=== PATIENT | male | born 1985 | race Caucasian/White ===

== ENCOUNTER 2016-09-08 09:03 | Emergency (ER) | payer MEDICAID, OTHER ==
[2016-09-08 09:09] VITALS: RESP 16; TEMP 97.8; O2SAT 100
[2016-09-08] MEDS ORDERED: Sodium Chloride 0.9% 1,000 ML IV STA (09:44)
--- NOTE | 2016-09-08 09:49 | ED PDOC ---
Arrival/HPI - General Chief Complaint: Dental Pain Time Seen by Provider: 09/08/16 09:43 Historian: Patient - History of Present Illness Narrative History of Present Illness (Text): 09/08/16 09:46 31-year-old male presents today with left-sided throat pain left-sided dental pain difficulty swallowing. Patient also complaining of feeling like he's having difficulty breathing. Complaining of subjective fevers and chills at home. Patient states he started 2 days ago with left lower dental pain and woke up today with left-sided throat pain and swelling of the throat and having trouble swallowing. Patient did not take any medications at home. Patient states he has had a left lower dental fracture for a long time but it has been over the past 2 days that the pain has worsened. Patient is now complaining of pain into the left side of the throat. Past Medical History - Provider Review Nursing Documentation Reviewed: Yes - Travel History Have you recently traveled outside [place] w/in the past 3 mons?: No - Infectious Disease Hx of Infectious Diseases: None - Tetanus Immunization Tetanus Immunization: Unknown - Psychiatric Hx Substance Use: No Family/Social History - Physician Review Nursing Documentation Reviewed: Yes Family/Social History: Unknown Family HX Smoking Status: Never Smoked Hx Alcohol Use: Yes Frequency of alcohol use: Socially Hx Substance Use: No Allergies/Home Meds Allergies/Adverse Reactions: Allergies No Known Allergies Allergy (Verified 09/08/16 09:09) Review of Systems - Review of Systems Constitutional: Fevers. absent: Fatigue ENT: Sore Throat, Other (left sided dental pain). absent: Sinus Congestion Respiratory: absent: SOB, Cough Cardiovascular: absent: Chest Pain, Palpitations Gastrointestinal: absent: Abdominal Pain, Nausea, Vomiting Genitourinary Male: absent: Dysuria Musculoskeletal: absent: Arthralgias Skin: absent: Rash, Pruritis Neurological: absent: Headache, Dizziness Psychiatric: absent: Anxiety, Depression Physical Exam Vital Signs Reviewed: Yes Vital Signs Temp Pulse Resp BP Pulse Ox 09/08/16 11:20 66 16 114/80 100 09/08/16 09:04 97.8 F 81 16 113/75 100 Temperature: Afebrile Blood Pressure: Normal Pulse: Regular Respiratory Rate: Normal Appearance: Positive for: Well-Appearing, Non-Toxic, Uncomfortable Pain Distress: Mild Mental Status: Positive for: Alert and Oriented X 3 - Systems Exam Head: Present: Atraumatic Extroacular Muscles: Present: EOMI Conjunctiva: Present: Normal Ears: Present: Normal, NORMAL TM Mouth: Present: Moist Mucous Membranes. No: Normal Teeth (+ left lower molar dental fracture) Pharnyx: Present: TONSILS ENLARGED, Other (tolerating secretions). No: ERYTHEMA , EXUDATE, Peritonsilar Swelling, Uvular Deviation, Muffled/Hoarse Voice, Strider, Soft Palate/Uvular Edema Nose (External): Present: Atraumatic Nose (Internal): Present: Normal Inspection Neck: Present: Normal Range of Motion, Lymphadenopathy (+ left sided tender lymphadenopathy.), Trachea Midline Respiratory/Chest: Present: Clear to Auscultation, Good Air Exchange. No: Respiratory Distress, Accessory Muscle Use Cardiovascular: Present: Regular Rate and Rhythm, Normal S1, S2. No: Murmurs Neurological: Present: GCS=15, Speech Normal Skin: Present: Warm, Dry, Normal Color. No: Rashes Psychiatric: Present: Alert, Oriented x 3 Medical Decision Making ED Course and Treatment: 09/08/16 09:50 31-year-old male complaining of 2 day history of left-sided dental and throat pain with difficulty breathing and swallowing appears uncomfortable although throat appears unremarkable will do a CAT scan to rule out retropharyngeal abscess. cbc: wnl cmp; wnl toradol decadron NS iv bolus pt reassessment; pt feeling much better after medications, states he feels like he can breath and swallow better. Ct soft tissue neck; FINDINGS: NASOPHARYNX: There is mild adenoid hypertrophy. SUPRAHYOID NECK: There is enlargement of the palatine and lingual tonsils, left larger than right. There is no evidence of peritonsillar abscess. There is no evidence of airway narrowing. The Unremarkable oropharynx, oral cavity, parapharyngeal space and retropharyngeal space are normal in appearance. INFRAHYOID NECK: The Unremarkable larynx, hypopharynx, and supraglottic space are normal. Vocal cords intact. MASS: None. GLANDS: Parotid and submandibular glands unremarkable. Normal size thyroid gland, without nodule. LYMPH NODES: There are enlarged left upper jugular chain lymph nodes. CERVICAL SPINE: No fracture or focal lesion. Within normal limits. VASCULAR STRUCTURES: There is normal intravascular enhancement. OTHER FINDINGS: None. IMPRESSION: Enlarged lingual and bilateral palatine tonsils, larger on the left. No evidence of peritonsillar abscess. Reactive left upper jugular chain lymphadenopathy. Mild adenoidal hypertrophy. I discussed all results in depth with patient. advised f/u with ENT and dentist. advised taking abx as prescribed. advised motrin for pain every 6 hours as need. advised return if symptoms worsen,persist or if new symptoms develop. Patient verbalizes understanding of discharge instructions and need for immediate followup. case was discussed with Dr. patel impression; pharyngitis, toothache Motrin every 6 hours as needed for pain/fever reduction Increase fluids Amoxicillin; 3 times daily x10 days Follow up primary care physician within the next 2 days Follow up with the Dentist within the next 2 days. Warm saltwater gargles, throat lozenges Return if symptoms worsen persist or if the symptoms develop - Lab Interpretations Lab Results: 09/08/16 10:00 09/08/16 10:00 Lab Results 09/08/16 10:00: WBC 8.8, RBC 5.01, Hgb 14.9, Hct 42.7, MCV 85.2, MCH 29.7, MCHC 34.9, RDW 12.8, Plt Count 271, MPV 9.3, Gran % 53.9, Lymph % (Auto) 36.2 H, [place] % (Auto) 5.2, Eos % (Auto) 4.4, Baso % (Auto) 0.3, Gran # 4.75, Lymph # 3.2 , [place] # 0.5, Eos # 0.4, Baso # 0.03, Sodium 139, Potassium 3.9, Chloride 103, Carbon Dioxide 27, Anion Gap 13, BUN 12, Creatinine 0.8, Est GFR ( Amer) > 60, Est GFR (Non-Af Amer) > 60, Random Glucose 93, Calcium 9.1, Total Bilirubin 0.8, AST 27, ALT 30, Alkaline Phosphatase 72, Total Protein 8.3, Albumin 4.2, Globulin 4.1, Albumin/Globulin Ratio 1.0 L - RAD Interpretation Radiology Orders: 09/08/16 09:43 NECK SOFT TISSUE W/CONTRAST [CT] Stat - Medication Orders Current Medication Orders: Discontinued Medications Dexamethasone (Decadron Inj) 10 mg IVP STAT STA Stop: 09/08/16 09:45 Last Admin: 09/08/16 10:01 Dose: 10 MG IVP Administration Document 09/08/16 10:01 SE (Rec: 09/08/16 10:01 [id number]) Charges for Administration # of IVP Administrations 1 Sodium Chloride (Sodium Chloride 0.9%) 1,000 mls @ 999 mls/hr IV .Q1H1M STA Stop: 09/08/16 10:44 Last Admin: 09/08/16 09:57 Dose: 999 MLS/HR eMAR Start Stop Document 09/08/16 09:57 SE (Rec: 09/08/16 09:57 SE [id number]) Intravenous Solution Start Date 09/08/16 Start Time 09:57 Iohexol (Omnipaque 350 100 Ml) Confirm Administered Dose 350 mg .ROUTE .STK-MED ONE Stop: 09/08/16 10:56 Ketorolac Tromethamine (Toradol) 15 mg IVP STAT STA Stop: 09/08/16 09:45 Last Admin: 09/08/16 10:01 Dose: 15 MG IVP Administration Document 09/08/16 10:01 SE (Rec: 09/08/16 10:01 [id number]) Charges for Administration # of IVP Administrations 1 Disposition/Present on Arrival - Present on Arrival Any Indicators Present on Arrival: No History of DVT/PE: No History of Uncontrolled Diabetes: No Urinary Catheter: No History of Decub. Ulcer: No History Surgical Site Infection Following: None - Disposition Have Diagnosis and Disposition been Completed?: Yes Diagnosis: Pharyngitis, Toothache Disposition: HOME/ ROUTINE Disposition Time: 11:59 Patient Plan: Discharge Condition: GOOD Discharge Instructions (ExitCare): Pharyngitis (ED), Toothache (ED) Additional Instructions: Motrin every 6 hours as needed for pain/fever reduction Increase fluids Amoxicillin; 3 times daily x10 days Follow up primary care physician within the next 2 days Follow up with the Dentist within the next 2 days. Warm saltwater gargles, throat lozenges Return if symptoms worsen persist or if the symptoms develop Prescriptions: Amoxicillin 500 mg PO TID #30 tab Ibuprofen [Motrin] 600 mg PO Q6H PRN #20 tab PRN Reason: pain/fever reduction Referrals: Jarrell Chan DO [Staff Provider] - Follow up with primary Kiko Harris DMD [Staff Provider] - Follow up with primary Forms: WORK NOTE
[2016-09-08 10:02] LABS: ADD MANUAL DIFF? NO
[2016-09-08 10:07] LABS: BASO # 0.03 K/mm3 (0.0-2.0); BASO % 0.3 % (0.0-3.0); EOS # 0.4 (0.0-0.7); EOS % 4.4 % (1.5-5.0); GRAN # 4.75 (1.4-6.5); GRAN % 53.9 % (50.0-68.0); HEMATOCRIT 42.7 % (42.0-52.0); LYMPH # 3.2 (1.2-3.4); LYMPH % 36.2 % (22.0-35.0); MEAN CELL VOLUME 85.2 fL (80.0-105.0); MEAN CORPUSCULAR HEMOGLOBIN 29.7 pg (25.0-35.0); MEAN CORPUSCULAR HGB CONC 34.9 g/dl (31.0-37.0); MEAN PLATELET VOLUME 9.3 fl (7.0-11.0); MONO # 0.5 (0.1-0.6); MONO % 5.2 % (1.0-6.0); PLATELET COUNT 271 10^3/uL (120.0-450.0); RED CELL DISTRIBUTION WIDTH 12.8 % (11.5-14.5); WHITE BLOOD COUNT 8.8 10^3/ul (4.5-11.0)
[2016-09-08 10:16] LABS: ALKALINE PHOSPHATASE 72 U/L (38-133); ALT/SGPT 30 U/L (7-56); AST/SGOT 27 U/L (15-59); BILIRUBIN,TOTAL 0.8 mg/dL (0.2-1.3); BLOOD UREA NITROGEN 12 mg/dL (7-21); CALCIUM 9.1 mg/dL (8.4-10.5); CARBON DIOXIDE 27 mmol/L (21-33); CHLORIDE 103 mmol/L (98-107); GFR AFRICAN-AMERICAN > 60; GLUCOSE,RANDOM 93 mg/dL (70-110); POTASSIUM 3.9 mmol/L (3.6-5.0); SODIUM 139 mmol/L (132-148); TOTAL PROTEIN 8.3 g/dL (5.8-8.3)
[2016-09-08] MEDS ORDERED: Iohexol 350 MG/100 ML VIAL ONE (10:55)
[2016-09-08 11:21] VITALS: BP 114/80; PULSE 66
--- NOTE | 2016-09-08 11:23 | CT ---
PROCEDURE: CT NECK WITH CONTRAST HISTORY: left sided neck/throat pain/difficulty swallowing COMPARISON: None TECHNIQUE: CT of the neck with intravenous contrast. Coronal and sagittal reformats generated. Intravenous contrast dose: 100 mL Omnipaque 350. Radiation dose: DLP 398.97 mGy-cm FINDINGS: NASOPHARYNX: There is mild adenoid hypertrophy. SUPRAHYOID NECK: There is enlargement of the palatine and lingual tonsils, left larger than right. There is no evidence of peritonsillar abscess. There is no evidence of airway narrowing. The Unremarkable oropharynx, oral cavity, parapharyngeal space and retropharyngeal space are normal in appearance. INFRAHYOID NECK: The Unremarkable larynx, hypopharynx, and supraglottic space are normal. Vocal cords intact. MASS: None. GLANDS: Parotid and submandibular glands unremarkable. Normal size thyroid gland, without nodule. LYMPH NODES: There are enlarged left upper jugular chain lymph nodes. CERVICAL SPINE: No fracture or focal lesion. Within normal limits. VASCULAR STRUCTURES: There is normal intravascular enhancement. OTHER FINDINGS: None. IMPRESSION: Enlarged lingual and bilateral palatine tonsils, larger on the left. No evidence of peritonsillar abscess. Reactive left upper jugular chain lymphadenopathy. Mild adenoidal hypertrophy.
== END 2016-09-08 12:22 | disposition home or self-care (01) ==
LOC: ED 09:03
DX: J02.9 Acute pharyngitis, unspecified (principal); K08.89 Other specified disorders of teeth and supporting structures
CPT/HCPCS: 70491; 80053; 85025; 96374; 96375; 99284; J1100; J1885; J7040; Q9967

== ENCOUNTER 2017-03-28 12:41 | Emergency (ER) | payer MEDICAID, OTHER ==
[2017-03-28 12:48] VITALS: BMI 27.8
[2017-03-28 12:51] VITALS: TEMP 98.6; O2SAT 99
[2017-03-28] MEDS ORDERED: Sodium Chloride 0.9% 1,000 ML IV STA (13:15)
--- NOTE | 2017-03-28 13:22 | ED PDOC ---
Arrival/HPI - General Chief Complaint: Abdominal Pain Time Seen by Provider: 03/28/17 12:55 Historian: Patient - History of Present Illness Narrative History of Present Illness (Text): 03/28/17 Demarcus Robert is a 31 year old male, who presents to the emergency department complaining of back pain. He reports that he had his boss who is a chiropractor work on his back and when she evaluated him patient began to complain of right flank pain and right lower quadrant pain so she suggested he go to ED. Patient reports having some frequency yesterday but denies any fever , nausea, chest pain, vomiting, constipation, diarrhea, shortness of breath, or other complaints. Time/Duration: < week (2 days) Symptom Onset: Sudden Symptom Course: Unchanged Associated Symptoms (Text): frequency, flank pain, and RLQ pain Past Medical History - Provider Review Nursing Documentation Reviewed: Yes - Infectious Disease Hx of Infectious Diseases: None - Tetanus Immunization Tetanus Immunization: Unknown - Reproductive Currently : No - Psychiatric Hx Substance Use: No - Anesthesia Hx Anesthesia: No Family/Social History - Physician Review Nursing Documentation Reviewed: Yes Family/Social History: Unknown Family HX Smoking Status: Never Smoked Hx Alcohol Use: Yes Hx Substance Use: No Allergies/Home Meds Allergies/Adverse Reactions: Allergies No Known Allergies Allergy (Verified 09/08/16 09:09) Home Medications: Home Meds Medication Instructions Recorded Confirmed No Known Home Med 03/28/17 03/28/17 Review of Systems - Review of Systems Constitutional: absent: Fatigue, Fevers Respiratory: absent: SOB, Cough Cardiovascular: absent: Chest Pain, Palpitations Gastrointestinal: Abdominal Pain (right lower quadrant ). absent: Constipation , Diarrhea, Nausea, Vomiting Genitourinary Male: Frequency (now resolved). absent: Dysuria, Hematuria Musculoskeletal: Back Pain, Other (right flank pain) Neurological: absent: Headache, Dizziness Endocrine: absent: Diaphoresis Physical Exam Vital Signs Reviewed: Yes Vital Signs Temp Pulse Resp BP Pulse Ox 03/28/17 16:12 65 18 118/75 99 03/28/17 14:55 62 17 120/78 99 03/28/17 12:50 98.6 F 64 18 117/76 99 Temperature: Afebrile Blood Pressure: Normal Pulse: Regular Respiratory Rate: Normal Appearance: Positive for: Well-Appearing, Non-Toxic, Comfortable Pain Distress: None Mental Status: Positive for: Alert and Oriented X 3 - Systems Exam Head: Present: Atraumatic, Normocephalic Pupils: Present: PERRL Extroacular Muscles: Present: EOMI Neck: Present: Normal Range of Motion Respiratory/Chest: Present: Clear to Auscultation, Good Air Exchange. No: Respiratory Distress, Accessory Muscle Use Cardiovascular: Present: Regular Rate and Rhythm, Normal S1, S2. No: Murmurs Abdomen: Present: Tenderness (scant right lower quadrant ), Normal Bowel Sounds , Other (no flank tenderness). No: Distention, Peritoneal Signs Back: No: CVA Tenderness, Midline Tenderness, Paraspinal Tenderness Upper Extremity: Present: Normal Inspection, Normal ROM, NORMAL PULSES. No: Cyanosis, Edema Lower Extremity: Present: Normal Inspection, NORMAL PULSES, Normal ROM. No: Edema Neurological: Present: GCS=15, CN II-XII Intact, Speech Normal Skin: Present: Warm, Dry, Normal Color. No: Rashes Psychiatric: Present: Alert, Oriented x 3, Normal Insight, Normal Concentration Medical Decision Making ED Course and Treatment: 03/28/17 Impression: 31 year old male with complaint of back pain. Differential Diagnosis included but are not limited to: appendicitis vs. renal colitis vs. musculoskeletal strain Plan: -- Labs -- Urinalysis -- Toradol and Sodium Chloride -- Reassess and disposition Progress Notes: 03/28/17 16:19 Labs grossly normal. UA negative for blood. Abdomen soft NT/ND. CT negative for acute pathology. Tolerating po. He is neurologically intact, ambulating around the ED. he was instructed to follow-up with PMD 03/28/17 16:33 - Lab Interpretations Lab Results: 03/28/17 13:58 03/28/17 13:58 Lab Results 03/28/17 14:50: Urine Color Yellow, Urine Appearance Clear, Urine pH 7.0, Ur Specific [place] 1.020, Urine Protein Negative, Urine Glucose (UA) Negative, Urine Ketones Trace H, Urine Blood Negative, Urine Nitrate Negative, Urine Bilirubin Negative, Urine Urobilinogen 0.2, Ur Leukocyte Esterase Negative 03/28/17 13:58: Sodium 142, Potassium 4.0, Chloride 103, Carbon Dioxide 31, Anion Gap 12, BUN 10, Creatinine 0.8, Est GFR ( Amer) > 60, Est GFR (Non- Af Amer) > 60, Random Glucose 100, Calcium 9.4, Total Bilirubin 0.4, AST 38, ALT 38, Alkaline Phosphatase 71, Total Protein 7.9, Albumin 4.4, Globulin 3.6, Albumin/Globulin Ratio 1.2, Lipase 93 03/28/17 13:58: WBC 9.3, RBC 5.10, Hgb 14.9, Hct 43.6, MCV 85.5, MCH 29.2, MCHC 34.2, RDW 12.4, Plt Count 281, MPV 9.7, Gran % 45.9 L, Lymph % (Auto) 45.8 H, [place] % (Auto) 5.4, Eos % (Auto) 2.5, Baso % (Auto) 0.4, Gran # 4.29, Lymph # 4.3 H, [place] # 0.5, Eos # 0.2, Baso # 0.04 I have reviewed the lab results: Yes - RAD Interpretation Radiology Orders: 03/28/17 15:19 ABD & PELVIS IV CONTRAST ONLY [CT] Stat - Medication Orders Current Medication Orders: Discontinued Medications Sodium Chloride (Sodium Chloride 0.9%) 1,000 mls @ 999 mls/hr IV .Q1H1M STA Stop: 03/28/17 14:15 Last Admin: 03/28/17 14:05 Dose: 999 mls/hr eMAR Start Stop Document 03/28/17 14:05 EQ (Rec: 03/28/17 14:05 EQ [id number]) Intravenous Solution Start Date 03/28/17 Start Time 14:05 Ketorolac Tromethamine (Toradol) 30 mg IVP STAT STA Stop: 03/28/17 13:16 Last Admin: 03/28/17 14:05 Dose: 30 mg MAR Pain Assessment Document 03/28/17 14:05 EQ (Rec: 03/28/17 14:06 EQ [id number]) Pain Reassessment Is this a pain reassessment? Yes IVP Administration Document 03/28/17 14:05 EQ (Rec: 03/28/17 14:06 EQ [id number]) Charges for Administration # of IVP Administrations 1 Morphine Sulfate (Morphine) 4 mg IVP STAT STA Stop: 03/28/17 14:22 Last Admin: 03/28/17 14:58 Dose: 4 mg MAR Pain Assessment Document 03/28/17 14:58 SF (Rec: 03/28/17 14:59 SF [id number]) Pain Reassessment Is this a pain reassessment? Yes Sleep Is patient sleeping during reassessment? No Presence of Pain Presence of Pain Yes IVP Administration Document 03/28/17 14:58 SF (Rec: 03/28/17 14:59 SF [id number]) Charges for Administration # of IVP Administrations 1 - Scribe Statement The provider has reviewed the documentation as recorded by the Abdiibe Kira Washington Provider Scribe Attestation: All medical record entries made by the Scribe were at my direction and personally dictated by me. I have reviewed the chart and agree that the record accurately reflects my personal performance of the history, physical exam, medical decision making, and the department course for this patient. I have also personally directed, reviewed, and agree with the discharge instructions and disposition. Disposition/Present on Arrival - Present on Arrival Any Indicators Present on Arrival: No History of DVT/PE: No History of Uncontrolled Diabetes: No Urinary Catheter: No History of Decub. Ulcer: No History Surgical Site Infection Following: None - Disposition Have Diagnosis and Disposition been Completed?: Yes Diagnosis: Back pain Disposition: HOME/ ROUTINE Disposition Time: 16:19 Patient Plan: Discharge Condition: GOOD Additional Instructions: Follow-up with PMD within 2 days. Return to ED if condition worsens. Referrals: PCP,NO [Primary Care Provider] - Follow up with primary Forms: [employer] (Maltese), WORK NOTE
[2017-03-28 14:07] LABS: BASO # 0.04 K/mm3 (0.0-2.0); BASO % 0.4 % (0.0-3.0); EOS # 0.2 (0.0-0.7); EOS % 2.5 % (1.5-5.0); GRAN # 4.29 (1.4-6.5); GRAN % 45.9 % (50.0-68.0); HEMATOCRIT 43.6 % (42.0-52.0); LYMPH # 4.3 (1.2-3.4); LYMPH % 45.8 % (22.0-35.0); MEAN CELL VOLUME 85.5 fl (80.0-105.0); MEAN CORPUSCULAR HEMOGLOBIN 29.2 pg (25.0-35.0); MEAN CORPUSCULAR HGB CONC 34.2 g/dl (31.0-37.0); MEAN PLATELET VOLUME 9.7 fl (7.0-11.0); MONO # 0.5 (0.1-0.6); MONO % 5.4 % (1.0-6.0); RED CELL DISTRIBUTION WIDTH 12.4 % (11.5-14.5); WHITE BLOOD COUNT 9.3 10^3/ul (4.5-11.0)
[2017-03-28 14:17] LABS: ALB/GLOB RATIO 1.2 (1.1-1.8); ALKALINE PHOSPHATASE 71 U/L (38-126); ALT/SGPT 38 U/L (7-56); AST/SGOT 38 U/L (17-59); BILIRUBIN,TOTAL 0.4 mg/dL (0.2-1.3); BLOOD UREA NITROGEN 10 mg/dL (7-21); CALCIUM 9.4 mg/dL (8.4-10.5); CARBON DIOXIDE 31 mmol/L (21-33); CHLORIDE 103 mmol/L (98-107); GFR AFRICAN-AMERICAN > 60; GLUCOSE,RANDOM 100 mg/dL (70-110); LIPASE 93 U/L (23-300); SODIUM 142 mmol/L (132-148); TOTAL PROTEIN 7.9 g/dL (5.8-8.3)
[2017-03-28] MEDS ORDERED: Morphine 4 mg/ml ISec IVP STA (14:21)
[2017-03-28 15:15] LABS: URINE APPEARANCE CLEAR (CLEAR); URINE BILIRUBIN NEGATIVE (NEGATIVE); URINE BLOOD NEGATIVE (NEGATIVE); URINE COLOR YELLOW (YELLOW); URINE GLUCOSE (UA) NEGATIVE (NEGATIVE); URINE KETONE TRACE mg/dL (NEGATIVE); URINE LEUKOCYTE ESTERASE NEGATIVE Leu/uL (NEGATIVE); URINE PROTEIN NEGATIVE mg/dL (<30 mg/dL); URINE UROBILINOGEN 0.2 E.U./dL (<1 E.U./dL)
[2017-03-28] MEDS ORDERED: Iohexol 350 MG/100 ML VIAL ONE (15:23)
[2017-03-28 16:12] VITALS: BP 118/75; PULSE 65; RESP 18
--- NOTE | 2017-03-28 16:17 | CT ---
PROCEDURE: CT Abdomen and Pelvis with contrast HISTORY: RLQ pain COMPARISON: None. TECHNIQUE: Contrast dose: 150 cc Omnipaque 300 Radiation dose: Total exam DLP = 586.84 mGy-cm. This CT exam was performed using one or more of the following dose reduction techniques: Automated exposure control, adjustment of the mA and/or kV according to patient size, and/or use of iterative reconstruction technique. FINDINGS: LOWER THORAX: Unremarkable. LIVER: Hepatic steatosis. No focal masses. No intrahepatic bile duct dilatation or perihepatic ascites. GALLBLADDER AND BILE DUCTS: Unremarkable. PANCREAS: Unremarkable. No gross lesion or ductal dilatation. SPLEEN: Unremarkable. ADRENALS: Unremarkable. No mass. KIDNEYS AND URETERS: Unremarkable. No hydronephrosis. No solid mass. VASCULATURE: Unremarkable. No aortic aneurysm. BOWEL: Unremarkable. No obstruction. No gross mural thickening. APPENDIX: Normal appendix. PERITONEUM: Unremarkable. No free fluid. No free air. LYMPH NODES: Unremarkable. No enlarged lymph nodes. BLADDER: Unremarkable. REPRODUCTIVE: Unremarkable. BONES: No acute fracture. OTHER FINDINGS: None. IMPRESSION: No significant or acute findings to account for/ related to the clinical presentation.
== END 2017-03-28 16:30 | disposition home or self-care (01) ==
LOC: ED 12:41
DX: M54.9 Dorsalgia, unspecified (principal)
CPT/HCPCS: 74177; 80053; 81003; 83690; 85025; 96374; 96375; 99285; J1885; J2270; J7040; Q9967